=== PATIENT | male | born 1975 | race Caucasian/White ===

== ENCOUNTER 2016-07-30 14:26 | Inpatient (IN) | payer SELFPAY ==
[~2016-07-30] VITALS: Ht 172.7 cm; Wt 97.7 kg
[2016-07-30 15:03] LABS: HEMATOCRIT 48.4 % (38.0-50.0); MCH 31.3 PG (29.0-34.0); MCHC 34.3 G/DL (30.0-36.0); MCV 91.1 FL (86-99); MEAN PLAT.VOLUME 10.1 uM^3 (9.0-12.4); PLATELET COUNT 159 K/uL (156-360); RBC DIS.WIDTH-CV 12.7 % (11.8-14.6); RBC DIS.WIDTH-SD 42.5 % (39-53); RED BLOOD COUNT 5.31 M/uL (4.00-5.50); WHITE BLOOD COUNT 8.9 K/uL (4.1-10.2)
[2016-07-30 15:12] LABS: CHLORIDE 107 mEq/L (99-109); POTASSIUM 3.9 mEq/L (3.7-5.4); SODIUM 141 mEq/L (136-147)
[2016-07-30 15:14] LABS: GLUCOSE 95 mg/dL (70-99)
[2016-07-30 15:15] LABS: ANION GAP 10 MEQ/L (2-14)
[2016-07-30 15:16] LABS: TOTAL BILIRUBIN 1.1 mg/dL (0.0-1.0)
[2016-07-30 15:17] LABS: SERUM ETHYL ALCOHOL < 10 mg/dL
[2016-07-30 15:18] LABS: ALKALINE PHOSPHATASE 55 IU/L (3-129); GFR ESTIMATE (CALCULATED) > 59 mL/min/
[2016-07-30 15:20] LABS: UREA NITROGEN (BUN) 9 mg/dL (9-23)
[2016-07-30 15:21] LABS: SALICYLATE < 5.0 MG/DL (15-30)
[2016-07-30 17:46] VITALS: BP 135/86
[2016-07-30 17:47] LABS: ADD MIUA? YES; BILIRUBIN SMALL; BLOOD NEGATIVE; COLOR AMBER ((YELLOW)); GLUCOSE (STRIP) NEGATIVE; KETONES 5; LEUKOCYTES NEGATIVE; NITRITE NEGATIVE; PROTEIN (STRIP) 30; SPECIFIC GRAVITY 1.029 (1.000-1.030)
[2016-07-30 17:55] LABS: AMPHETAMINE NEGATIVE (500 ng/mL); BARBITURATES NEGATIVE (200 ng/mL); BENZODIAZEPINES PRESUMPTIVE POSITIVE (150 ng/mL); COCAINE NEGATIVE (150 ng/mL); INTERNAL CONTROLS VALID? YES; METHADONE NEGATIVE (200 ng/mL); METHAMPHETAMINE NEGATIVE (500 ng/mL); OPIATES (MORPHINE) NEGATIVE (100 ng/mL); OXYCODONE NEGATIVE (100 ng/mL); PHENCYCLIDINE NEGATIVE (25 ng/mL); PROPOXYPHENE NEGATIVE (300 ng/mL); THC CANNABINOIDS NEGATIVE (50 ng/mL); TRICYCLIC ANTIDEPRESSANTS NEGATIVE (300 ng/mL)
[2016-07-30 17:56] LABS: ADD MEDTOX COMMENT Y
[2016-07-30 18:12] LABS: BACTERIA 1+ /HPF; CASTS PRESENT /LPF; CRYSTALS NONE SEEN; EPITHELIAL CELLS RARE /HPF; HYALINE CASTS 0-5 /LPF; MUCUS 3+ /LPF; RED BLOOD CELLS 0-5 /HPF (0-5); WHITE BLOOD CELLS 0-5 /HPF (0-5)
[2016-07-30 18:16] LABS: BENZODIAZEPINES QUANT VALUE 0 NG/ML
[2016-07-30 18:26] LABS: BENZODIAZEPINES, URINE SCREEN Negative (200 ng/mL)
[2016-07-31 07:24] VITALS: BP 131/72
[2016-07-31 15:38] VITALS: BP 127/77
[2016-08-01 07:52] VITALS: BP 113/64
[2016-08-01 15:52] VITALS: BP 146/70
[2016-08-02 08:02] VITALS: BP 136/67
[2016-08-02 16:34] VITALS: BP 135/82
[2016-08-03 07:45] VITALS: BP 138/91
[2016-08-03 15:38] VITALS: BP 125/79
[2016-08-04 07:27] VITALS: BP 139/79
[2016-08-04 15:27] VITALS: BP 128/73
[2016-08-05 07:35] VITALS: BP 116/66
[2016-08-05 15:27] VITALS: BP 122/70
[2016-08-06 07:48] VITALS: BP 126/81
[2016-08-06 15:41] VITALS: BP 109/59
[2016-08-07 07:34] VITALS: BP 111/66
[2016-08-07] MEDS ORDERED: OLANZAPINE5 MG PO (09:13)
== END 2016-08-07 10:26 | DRG 885 ==
LOC: EME 14:26 → EDOF 16:22 → 1WEST 16:22
PROVIDERS: Emergency Medicine
DX: F20.0 Paranoid schizophrenia (principal); F23 Brief psychotic disorder; F12.90 Cannabis use, unspecified, uncomplicated; F14.90 Cocaine use, unspecified, uncomplicated; Z87.891 Personal history of nicotine dependence
CPT/HCPCS: 80053; 81003; 84443; 84999; 85027; 90837; 97150 GO; 97166 GO; 99281; 99285; G0480